=== PATIENT | male | born 1990 | race Asian ===

== ENCOUNTER 2024-02-27 07:48 | Outpatient (CLI) | payer OTHER ==
--- NOTE | 2024-02-27 08:24 | CARDIAC PROCEDURE NOTE ---
Stress Test Report Service Date: 02/27/24 Service Time: 08:00 Ordering Provider: Marine Dumont MD Indication for Test: Assess intermittent non-exertional chest pain. 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 He reports chest discomfort occurring intermittently over the past year, sometimes triggered by taking a deep breath but never by exertion. He feels central substernal tightness, sometimes with a feeling of chest numbness and difficulty taking a full breath, but he denies associated nausea, diaphoresis or lightheadedness. Symptoms resolve with focus on increasing the depth of his breath, typically in about 10-20 minutes. In addition to his work duties he also walks regularly, without experiencing any chest discomfort. He saw a ceramic tile setter for his dyslipidemia and has made some dietary changes, with repeat lipids to be drawn at some point in the future. Cardiac Risk Factors: Positive for untreated hyperlipidemia (fasting lipids in 12/22 included TChol 244, LDLc 161, HDLc 40, TG 214); no history of hypertension, diabetes, family history of known CAD or significant tobacco smoking history. Type of Stress Test: ETT with Echocardiography Procedure: -Exercise Treadmill Test- After signing informed consent, the patient underwent echo imaging at rest and then performed treadmill exercise using a Wesley protocol. The patient exercised for 9 minutes 54 seconds and achieved a peak heart rate of 185 (99 percent predicted maximum heart rate for age), and an estimated workload of 11.6 METS. The test was terminated due to achieving target heart rate. Resting heart rate: 88 Peak heart rate: 185 Normal response to exercise. Resting BP: 122/87 Peak BP: 166/81 Normal BP response to exercise. Room air oxygen saturation during exercise ranged between 95-99% Rhythm during exercise: Sinus rhythm throughout, with zero PVCs recorded. Symptoms: He denied experiencing any chest discomfort whatsoever, though did report experiencing cramping of his calf muscles. EKG at rest showed normal sinus rhythm with marked right axis deviation with QRS duration of 100 msec, likely due to left posterior fascicular block. EKG at peak stress showed no ischemia by EKG criteria. In Recovery HR and BP rapidly decreased towards resting levels though HR was still elevated at 109 bpm with BP decreased to 142/76 at 5:00. Echo imaging, performed at rest and with stress, will be reported separately. I, Emmanuel Fermin MD, was present throughout this treadmill stress study and supervised it in its entirety. Summary: 1) Exercise tolerance may be slightly below average for age and sex, as evidenced by HASEEB of 24%; he may have been able to walk further, but the study was terminated due to his approaching 100% predicted maximal heart rate. 2) Abnormal resting EKG (with probable left posterior fascicular block). 3) Adequate level of exercise was achieved on this treadmill stress test. 4) Normal BP response to exercise. 5) No ischemic changes by EKG criteria were seen at peak stress. 6) Echo image interpretation reveals normal left ventricular size, wall thickness and systolic function, with appropriate hyperdynamic augmentation of all segments with exercise, indicating no evidence of prior infarct or inducible ischemia. No significant valvular abnormality or elevation of estimated pulmonary artery systolic pressure seen on screening study. See separate report for more details. Conclusions and Recommendations: 1) Overall these results are entirely reassuring, with vigorous hemodynamic responses, no occurrence of chest discomfort nor evidence of inducible ischemia by EKG or echocardiographic analysis. 2) I encouraged Eligio to remain committed to his improved diet and undergo repeat fasting lipids in a few months, to see how much improvement there is. There is increasing recognition that atherosclerosis can become evident even in early middle-aged adults, so I encouraged him to have a coronary artery calcium screening CT at least by age 40, to guide the possible initiation, and intensity, of hypolipidemic therapy with a statin (and other drugs as needed) to reduce his lifetime risk of atherosclerotic events.
== END 2024-02-27 07:49 | disposition home or self-care (01) ==
LOC: DI 07:48
DX: R07.9 Chest pain, unspecified (principal); E78.5 Hyperlipidemia, unspecified
CPT/HCPCS: 93350